=== PATIENT | male | born 1965 | race Caucasian/White ===

== ENCOUNTER 2019-11-03 14:52 | Emergency (ER) | payer MEDICAID ==
[~2019-11-03] VITALS: Ht 175.3 cm; Wt 68.2 kg
[2019-11-03 15:15] VITALS: Ht 175.3 cm; Wt 68.2 kg
[2019-11-03 16:12] LABS: BASOPHILS 0.2 % (0-2); EOSINOPHILS 0.8 % (0-7); HEMATOCRIT 45.6 % (42.0-54.0); HEMOGLOBIN 15.8 g/dL (13.5-17.5); IMMATURE GRANULOCYTES 0.2 % (0-5); LYMPHOCYTES 21.4 % (15-50); MCH 30.6 pg (26.0-34.0); MCHC 34.6 g/dL (31.0-37.0); MCV 88.2 fL (80.0-100.0); MEAN PLATELET VOLUME 9.7 fL (7.4-10.4); MONOCYTES 4.7 % (2-11); NEUTROPHILS 72.7 % (40-80); PLATELET COUNT 350 10x3/uL (130-400); RBC 5.17 10x6/uL (4.20-6.10); RDW 13.2 % (11.5-14.5); WBC 10.3 10x3/uL (4.8-10.8)
[2019-11-03 16:18] LABS: APTT 26.2 SECONDS (22.8-39.4); INR 0.98 (0.85-1.17); PROTIME 12.9 SECONDS (11.6-15.0)
[2019-11-03 16:22] LABS: CALC OSMOLALITY 277 mosm/kg (275-300); CALCIUM 9.6 mg/dL (8.5-10.1); CARBON DIOXIDE 27.8 mmol/L (21.0-32.0); CHLORIDE - SERUM 102 mmol/L (98-107); CREATININE - SERUM 1.2 mg/dL (0.6-1.3); GLUCOSE 86 mg/dL (74-106); POTASSIUM - SERUM 3.4 mmol/L (3.5-5.1); SODIUM 139 mmol/L (136-145); UREA NITROGEN 15 mg/dL (7-18); eGFR NON AFRICAN AMERICAN 67 mL/min (90-120)
[2019-11-03 16:23] LABS: BACTERIA FEW /hpf (NEGATIVE); BILIRUBIN NEGATIVE (NEGATIVE); GLUCOSE NEGATIVE (NEGATIVE); KETONE NEGATIVE (NEGATIVE); NITRITE NEGATIVE (NEGATIVE); RED CELLS - URINE 0-5 /hpf (0-5); SPECIFIC GRAVITY 1.025 (1.005-1.020); UROBILINOGEN NORMAL (NORMAL); WHITE CELLS - URINE 0-5 /hpf (NEGATIVE)
[2019-11-03 17:22] LABS: ALBUMIN 4.4 g/dL (3.4-5.0); ALKALINE PHOSPHATASE 74 U/L (30-120); ALT (SGPT) 29 U/L (10-68); BILIRUBIN - TOTAL 0.53 mg/dL (0.2-1.3); CREATINE KINASE 315 UL (21-232); PROTEIN - SERUM 7.9 g/dL (6.4-8.2)
[2019-11-03 17:25] LABS: TROPONIN-I < 0.017 ng/mL (0.000-0.060)
[2019-11-03 17:45] LABS: CKMB 1.4 U/L (0.0-3.6)
[2019-11-03 17:57] VITALS: BP 117/62
== END 2019-11-03 18:01 | disposition home or self-care (01) ==
LOC: D.ER 14:52
PROVIDERS: Family Medicine
DX: T67.5XXA Heat exhaustion, unspecified, initial encounter (principal); E86.0 Dehydration; E87.6 Hypokalemia; R93.0 Abnormal findings on diagnostic imaging of skull and head, not elsewhere classified; R94.4 Abnormal results of kidney function studies; R53.1 Weakness

== ENCOUNTER → 2020-07-28 12:38 | Outpatient (CLI) | payer OTHER ==
[2020-03-13 06:19] VITALS: BMI 24.0
[~2020-07-28 12:38] MED LIST: LEVOFLOXACIN500 MG PO; OMEPRAZOLE40 MG PO; TYLENOL W/CODEI1 TAB PO; XANAX1 MG PO
== END | disposition home or self-care (01) ==
LOC: D.RAD 12:38
PROVIDERS: ATTEND Nurse Practitioner Family
DX: T14.8XXA Other injury of unspecified body region, initial encounter (principal); W55.01XA Bitten by cat, initial encounter